=== PATIENT | male | born 1945 | race Caucasian/White ===

== ENCOUNTER → 2016-12-01 | Outpatient (CLI) | payer MEDICARE, OTHER | END | disposition home or self-care (01) | LOC: GMAM 10:49 | PROVIDERS: ATTEND Family Medicine | DX: Z12.5 Encounter for screening for malignant neoplasm of prostate (principal); R29.898 Other symptoms and signs involving the musculoskeletal system; I10 Essential (primary) hypertension | CPT/HCPCS: 84550; 85651; 86038; 86060; 86140; 86431; G0103 ==

== ENCOUNTER → 2017-07-18 | Outpatient (CLI) | payer MEDICARE ==
--- NOTE | 2017-07-18 11:18 | MRI ---
EXAM DESCRIPTION: Brain w/wo Contrast: Magnetic Resonance Imaging. CLINICAL HISTORY: TIA COMPARISON: MRI brain without contrast 07/02/2014. CT scan of the head without contrast 10/22/2014. TECHNIQUE: Multiplanar, high-field MRI, multiple conventional sequences, without and with gadolinium IV contrast. No adverse reactions. Multiple axial diffusion sequences. FINDINGS: Multiple bilateral foci of hyperintense FLAIR and T2-weighted signal in the periventricular white matter, more evident in the craig-white matter junctions of the cerebral hemispheres. Bone density with metallic susceptibility artifact in the left basal ganglia which may be due to iron deposition. Slight dilation of the adjacent left ventricle. This was also seen on the prior study. No diffusion restriction. . Similar hyperintense signal in the bilateral superior basal ganglia. No hemorrhage, no cerebral edema, no mass-effect. Normal contrast enhancement. Normal signal in the brainstem and cerebellar hemispheres. No hemorrhage, no cerebral edema, no mass-effect. Normal contrast enhancement. Concordance of the diffusion and non-diffusion sequences with no evidence of acute or subacute infarction. Cortical sulci, ventricles, and other CSF spaces, and the subdural spaces are normally configured. No effacement or displacement. No midline shift. No extra-axial hemorrhage. Normal contrast enhancement. Normal flow signal void in the major vessels of the [place], and the venous sinuses. IACs are symmetric bilaterally. Normal signal in the bilateral mastoid air cells. No mass effect in the bilateral Cerebellopontine angles. Normal contrast enhancement. Pituitary gland occupies most of the sella. Normal contrast enhancement. Base of the cerebellar tonsils is just above the foramen magnum. No periosteal thickening involving most of the paranasal sinuses. The bony calvarium is intact. IMPRESSION: 1. Bilateral hyperintensities in the cerebral hemispheres most likely related to aging and cerebral microvascular disease. 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 Stable since June 2014. No acute hemorrhage mass effect or cerebral edema. No diffusion restriction. Electronically signed by: Duane Guerra MD 07/18/2017 11:17 AM CDT
--- NOTE | 2017-07-18 14:45 | US ---
EXAM DESCRIPTION: Carotid Duplex: ULTRASOUND. CLINICAL HISTORY: TIA COMPARISON: MRI of the brain without and with contrast on this visit. TECHNIQUE: Transcutaneous scanning utilizing 2-dimensional and Doppler modes to evaluate the bilateral carotid systems and vertebral arteries. Percentage of diameter of stenosis or no stenosis recorded will be based upon NASCET criteria. FINDINGS: Peak systolic/end diastolic (CM-Sec) CCA Right 71/23 Left 63/13. ICA Right proximal 53/15, mid 63/30. Left proximal 31/11, mid 48/15. Vertebral Right 35/14 Left 17/1. ECA (PS Only) Right 83 left 64. ICA/CCA peak systolic ratio: Right 0.9 Left 0.8 ICA/CCA end diastolic ratio: Right 1.3 Left 1.1 Vertebral arteries: antegrade flow. Comments: Bilateral atherosclerotic calcification at the common carotids distally in the bifurcations. Area stenosis of the distal left CCA is 20% and diameter stenosis is 35%. Area stenosis of the left CCA bulb is 16% and diameter stenosis is 21%. Area and diameter stenosis of the proximal left ICA is 28%. Area stenosis of the right CCA bulb is 15% and diameter stenosis is 31%. Area stenosis of the proximal right ICA is 14% and diameter stenosis is 12%. Spectral broadening in the bilateral proximal ICAs. IMPRESSION: 1. Doppler evaluation of the bilateral carotid systems and vertebral arteries shows no hemodynamically significant stenoses. 2. No significant amount of plaque seen in the carotid arteries bilaterally. Bilateral vertebral arteries showed antegrade-cephalad flow. Electronically signed by: Duane Guerra MD 07/18/2017 2:44 PM CDT
== END ==
LOC: MRI 07:46
PROVIDERS: ATTEND Family Medicine
DX: G45.9 Transient cerebral ischemic attack, unspecified (principal)

== ENCOUNTER → 2018-05-01 | Outpatient (CLI) | payer MEDICARE, OTHER | LOC: GMAM 12:51 | PROVIDERS: ATTEND Family Medicine | DX: Z12.5 Encounter for screening for malignant neoplasm of prostate (principal) ==

== ENCOUNTER → 2018-05-03 | Outpatient (CLI) | payer MEDICARE, OTHER ==
--- NOTE | 2018-05-03 14:09 | US ---
EXAM DESCRIPTION: Aorta: Ultrasound. CLINICAL HISTORY: AORTIC STENOSIS COMPARISON: Carotid duplex ultrasound July 2017. TECHNIQUE: Transcutaneous scanning: Two-dimensional and Doppler modes. FINDINGS: Abdominal aorta diameter - Proximal: 2.5 x 2.3 cm. Mid: 1.6 x 1.5 cm. Distal: 1.7 x 1.6 cm. Common Iliac diameter - Right: 11 mm. Left: 12 mm. Other: Irregular intimal wall thickening, most likely atherosclerosis.. IMPRESSION: No abdominal aortic aneurysm. No gross para-aortic mass. Electronically signed by: Duane Guerra MD 05/03/2018 2:05 PM [facility]
== END ==
LOC: US 08:00
PROVIDERS: ATTEND Family Medicine
DX: I70.0 Atherosclerosis of aorta (principal)

== ENCOUNTER → 2018-11-20 | Outpatient (CLI) | payer MEDICARE, OTHER ==
--- NOTE | 2018-11-20 17:48 | MRI ---
EXAM DESCRIPTION: Brain w/wo Contrast: Magnetic Resonance Imaging. CLINICAL HISTORY: 73 years Male Dizziness and giddiness COMPARISON: Less than of the brain without and with gadolinium IV contrast 07/18/2017. TECHNIQUE: Multiplanar, high-field MRI, multiple conventional sequences, without and with 0.1 mmol/kilogram gadolinium IV contrast. No adverse reactions. Multiple axial diffusion sequences. FINDINGS: Small focus of hyperintense diffusion weighted signal in the inferior left parieto-occipital lobe lateral to the occipital horn of the left lateral ventricle. Not associated with hemorrhage or mass effect or abnormal contrast enhancement. This is a new finding since the prior study. Bilateral confluent hyperintense FLAIR and T2-weighted signal in the periventricular white matter lesions in the frontal parietal and occipital lobes with the largest lesions in the right frontal lobe and left parietal and occipital lobes. More lesions also in the right frontal and left parieto-occipital centrum semiovale. Bilateral smaller focal lesions in the subcortical white matter relatively symmetric bilaterally. These lesions are not associated with hemorrhage contrast enhancement, mass effect, or diffusion restriction. Encephalomalacia and dilation of the adjacent posterior left lateral ventricle and the left parietal lobe. Associated with minimal blooming on T2*gradient image. Encephalomalacia in the posterior left basal ganglia. Also associated with minimal blooming on T2*GRE image. Smaller hyperintense FLAIR signal lesions bilaterally. No hemorrhage, no cerebral edema, no mass-effect. Normal contrast enhancement. Normal signal in the brainstem and cerebellar hemispheres. No hemorrhage, no cerebral edema, no mass-effect. Normal contrast enhancement. Concordance of the diffusion and non-diffusion sequences, otherwise, with no evidence of acute or subacute infarction. Cortical sulci, ventricles, and other CSF spaces, and the subdural spaces are normally configured for patients age.. No effacement or displacement. No midline shift. No extra-axial hemorrhage. Normal contrast enhancement. Normal flow signal void in the major vessels of the [place], and the venous sinuses. IACs are symmetric bilaterally. Normal signal in the bilateral mastoid air cells. No mass effect in the bilateral Cerebellopontine angles. Normal contrast enhancement. Pituitary gland occupies most of the sella. Normal contrast enhancement. Base of the cerebellar tonsils is above the foramen magnum. Minimal mucoperiosteal thickening in the right-sided paranasal sinuses. No air-fluid levels. The bony calvarium is intact. IMPRESSION: 1. New small focal area (since July 2017) of significant ischemia versus subacute infarction left parieto-occipital lobe lateral to the posterior horn of the left lateral ventricle, posterior to the left temporal lobe. Not associated with mass effect, hemorrhage, or abnormal contrast enhancement. 2. 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 Stable since the prior study. 3. Bilateral white matter changes periventricular and subcortical in the frontoparietal and occipital lobes stable since the prior study. 4. Paranasal chronic sinusitis stable. Electronically signed by: Duane Guerra MD 11/20/2018 5:47 PM CDT
== END ==
LOC: MRI 10:00
PROVIDERS: ATTEND Family Medicine
DX: G93.9 Disorder of brain, unspecified (principal); J32.9 Chronic sinusitis, unspecified; G93.89 Other specified disorders of brain